=== PATIENT | male | born 1965 | race Caucasian/White ===

== ENCOUNTER → 2019-11-02 08:12 | Outpatient (CLI) | payer BC, SELFPAY ==
[2019-11-02 10:16] LABS: Absolute Lymphocyte Count 2.09 X10^3/uL (0.83-4.51); Absolute Neutrophil Count 4.4 X10^3/uL (2.0-7.7); Basophil# 0.11 X10^3/uL; Basophil% 1.3 % (0-1); Eosinophil# 0.65 X10^3/uL; Hematocrit 46.3 % (40-54); Hemoglobin 15.3 g/dL (13.0-16.5); Lymphocyte # 2.09 X10^3/ul (4.0); Lymphocyte % 25.6 % (19-41); Mean Corpuscular Hgb 29.8 pg (27.0-32.0); Mean Corpuscular Volume 90.1 fL (80-94); Mean Platelet Vol. 9.9 fl (6.2-12.0); Monocyte# 0.84 X10^3/uL; Monocyte% 10.3 % (0-10); NRBC Flagged by Analyzer 0 % (0-5); Neutrophil # 4.41 X10^3/uL (2.7-7.7); Neutrophil % 54.1 % (47-70); Platelet Count 283 K/mm3 (150-450); RBC Distribution Width SD 42.3 fl (35.1-43.9); Red Blood Count 5.14 M/mm3 (4.6-6.2); White Blood Count 8.2 K/mm3 (4.4-11.0)
[2019-11-02 10:47] LABS: Vitamin B12 451 pg/mL (211-911)
[2019-11-02 10:48] LABS: ALB/GLOB Ratio 1.1 RATIO (0.9-2.4); AST(SGOT) 19 U/L (15-37); Alanine Aminotransfer ALT/SGPT 27 U/L (16-61); Alkaline Phosphatase 40 U/L (45-117); Anion Gap 5 (5-15); BUN 14 mg/dL (7-18); BUN/Creat Ratio 13.2 RATIO (10-20); Calcium,Total 9.1 mg/dL (8.5-10.1); Chloride 105 mmol/L (98-107); Cholesterol 185 mg/dL (200); Creatinine, Serum 1.06 mg/dL (0.70-1.30); EST Glomerular Filtration Rate 78 mL/min (>60); Est Glom Filt Rate - Afr Amer 94 mL/min (>60); Globulin 3.5 g/dL (2.2-4.2); Glucose 85 mg/dL (74-106); High Density Lipoprotein 58 mg/dL; PSA,Total - Annual Screen 1.05 ng/mL (0.00-4.00); Potassium 3.9 mmol/L (3.5-5.1); Protein, Total 7.5 g/dL (6.4-8.2); Sodium Level 138 mmol/L (136-145); Thyroid Stim Hormone (TSH) 4.37 uIU/mL (0.358-3.74); Triglycerides 67 mg/dL; Very Low Density Lipoprotein 13 mg/dL (5-40)
[2019-11-03 11:43] LABS: T4 Free Direct 1.02 ng/dL (0.76-1.46)
== END ==
PROVIDERS: PCP Family Medicine; Referring Provider Family Medicine; Visit Provider Family Medicine
DX: E66.9 Obesity, unspecified (principal); R04.0 Epistaxis; R53.83 Other fatigue; R35.1 Nocturia; Z13.220 Encounter for screening for lipoid disorders
CPT/HCPCS: 36415; 80053; 80061; 82306; 82607; 84153; 84403; 84439; 84443; 85025; G0103

== ENCOUNTER → 2019-12-07 16:56 | Outpatient (CLI) | payer BC, SELFPAY ==
[2019-12-07 18:07] LABS: T4 Free Direct 1.04 ng/dL (0.76-1.46); Thyroid Stim Hormone (TSH) 4.44 uIU/mL (0.358-3.74)
== END ==
PROVIDERS: PCP Family Medicine; Referring Provider Family Medicine; Visit Provider Family Medicine
DX: E03.9 Hypothyroidism, unspecified (principal)
CPT/HCPCS: 36415; 84439; 84443

== ENCOUNTER → 2020-02-29 14:59 | Outpatient (CLI) | payer BC, SELFPAY | PROVIDERS: PCP Family Medicine; Visit Provider Family Medicine | DX: U07.1 COVID-19 (principal) | CPT/HCPCS: 87635; U0003 ==

== ENCOUNTER → 2020-03-13 16:51 | Outpatient (CLI) | payer BC, SELFPAY ==
--- NOTE | 2020-03-13 17:02 | RAD_ITS ---
STUDY: X-RAY - RIGHT KNEE REASON FOR EXAM: Right knee pain and limited range of motion, no specific injury. TECHNIQUE: 3 view(s) of the knee. COMPARISON: None. FINDINGS: Normal visualized distal femur. Normal visualized proximal tibia and fibula. Normal proximal tibiofibular articulation. Normal medial femorotibial compartment. There is moderate joint space narrowing of the lateral femorotibial compartment. There are marginal osteophytes and mild joint space narrowing of the patellofemoral articulation. There is a suspected small intra-articular body in the anterior aspect of the knee. RAD/Knee 3 Views IMPRESSION: Arthrosis of the lateral femorotibial and patellofemoral compartments. Suspected small intra-articular body. Electronically Signed: Dajuan Brar MD at 14:13 EST Tel , Service support ,
== END ==
PROVIDERS: PCP Family Medicine; Referring Provider Family Medicine; Visit Provider Family Medicine
DX: M25.561 Pain in right knee (principal)
CPT/HCPCS: 73562

== ENCOUNTER 2021-06-20 11:54 | Outpatient (CLI) | payer BC, SELFPAY | END 2021-06-20 23:59 | disposition home or self-care (01) | LOC: LABSPEC 11:55 | PROVIDERS: PCP Family Medicine; Visit Provider Nurse Practitioner Family | DX: R30.0 Dysuria (principal) | CPT/HCPCS: 87077; 87086; 87088; 87186 ==

== ENCOUNTER → 2024-02-19 | Outpatient (CLI) | payer BC, SELFPAY ==
[2024-02-19 12:33] LABS: Hematocrit 47.4 % (40-54); Hemoglobin 15.7 g/dL (13.0-16.5); Mean Corp Hgb Conc 33.1 g/dL (32-36); Mean Corpuscular Hgb 28.9 pg (27.0-32.0); Mean Corpuscular Volume 87.1 fL (80-94); Mean Platelet Vol. 9.7 fl (6.2-12.0); Platelet Count 321 K/mm3 (150-450); RBC Distribution Width CV 12.9 % (11.6-14.6); Red Blood Count 5.44 M/mm3 (4.6-6.2); White Blood Count 7.8 K/mm3 (4.4-11.0)
[2024-02-19 13:04] LABS: Anion Gap 6 (5-15); BUN 16 mg/dL (7-18); BUN/Creat Ratio 13.8 RATIO (10-20); Calcium,Total 9.5 mg/dL (8.5-10.1); Chloride 110 mmol/L (98-107); Cholesterol 186 mg/dL (200); Creatinine, Serum 1.16 mg/dL (0.70-1.30); EST Glomerular Filtration Rate 69 mL/min (>60); Est Glom Filt Rate - Afr Amer 83 mL/min (>60); Glucose 99 mg/dL (74-106); High Density Lipoprotein 69 mg/dL; Potassium 4.2 mmol/L (3.5-5.1); Sodium Level 139 mmol/L (136-145); T4 Free Direct 0.99 ng/dL (0.76-1.46); Triglycerides 81 mg/dL; Very Low Density Lipoprotein 16 mg/dL (5-40)
== END | disposition home or self-care (01) ==
LOC: MFPLAB 11:20
PROVIDERS: PCP Family Medicine; Referring Provider Family Medicine; Visit Provider Family Medicine
DX: Z13.220 Encounter for screening for lipoid disorders (principal); Z13.1 Encounter for screening for diabetes mellitus; R10.13 Epigastric pain; E03.8 Other specified hypothyroidism
CPT/HCPCS: 36415; 80048; 80061; 84439; 84443; 85027

== ENCOUNTER → 2024-07-02 | Outpatient (CLI) | payer BC, SELFPAY ==
--- NOTE | 2024-07-02 11:33 | RAD_ITS ---
PROCEDURE: CHEST PA AND LATERAL (RADCXR), 07/02/2024 REASON FOR EXAM: COUGH TECHNIQUE: PA and lateral views of the chest were obtained. COMPARISON: None FINDINGS: Heart: Unremarkable. Mediastinum: Unremarkable. Lungs/pleura: Focal opacity in the RIGHT upper lobe appears well marginated by the minor fissure, no clear correlate on the lateral view. No pleural effusion or visible pneumothorax. Bones: Multilevel spondylosis. RIGHT rotator cuff repair. Lines and support devices: None. Other: None. RAD/Chest PA and Lateral IMPRESSION: 1. Nodular opacity in the RIGHT upper lobe is compatible with pneumonia, howeve r given nodular configuration, recommend either follow-up to radiographic resolution or CT. 2. Additional description as above. Reading Location: [id number]
== END | disposition home or self-care (01) ==
LOC: MTRAD 11:33
PROVIDERS: PCP Family Medicine; Referring Provider Physician Assistant Surgical; Visit Provider Physician Assistant Surgical
DX: R05.9 Cough, unspecified (principal)
CPT/HCPCS: 71046